=== PATIENT | female | born 1985 | race Caucasian/White ===

== ENCOUNTER 2017-07-15 08:45 | Emergency (ER) | payer SELFPAY ==
[2017-07-15] MEDS ORDERED: D50W 25 GM/50 ML SYRINGE IV ONE (08:55)
[2017-07-15] MEDS ORDERED: NA CHLORIDE 0.9% 1,000 ML ONE ×2 (08:56→10:36)
[2017-07-15 09:12] LABS: Absolute Lymphocytes (CBC) 2.6 K/uL (0.7-4.9); Absolute Neutrophil 8.9 K/uL (1.8-8.0); Basophils % 0.4 % (0-1.3); Eosinophils % 0.5 % (0-4.4); Hematocrit 45.1 % (36.0-45.0); Lymphocytes % 20.2 % (15.3-44.8); MCH 31.6 pg (27.0-35.0); MCV 93.3 fL (80-100); MPV 8.2 fL (7.6-11.3); Monocytes % 8.1 % (3.3-12.3); RBC Red Blood Cell Count 4.83 M/uL (3.86-4.86)
[2017-07-15 09:23] LABS: Protime INR 1.01
[2017-07-15 09:33] LABS: Glucose Level 71 mg/dL (65-120)
[2017-07-15 09:36] LABS: Barbiturates NEGATIVE; Benzodiazepines NEGATIVE; Cocaine POSITIVE; METHAMPHETAM NEGATIVE (NEGATIVE); Opiates NEGATIVE; Phencyclidine NEGATIVE; THC Cannibis NEGATIVE
[2017-07-15 09:39] LABS: ALT/SGPT 13 IU/L (10-60); AST/SGOT 21 IU/L (10-42); Albumin 4.5 g/dL (3.2-5.5); Alkaline Phosphatase 54 IU/L (42-121); BUN Blood Urea Nitrogen 6 mg/dL (6-20); Bilirubin Direct 0.1 mg/dL (0-0.2); Bilirubin Total 0.5 mg/dL (0.3-1.2); Protein, Total 7.7 g/dL (6.0-8.3)
[2017-07-15 09:41] LABS: Bicarbonate 22 mEq/L (21-31); Sodium Level 135 mEq/L (135-145)
[2017-07-15 09:41] LABS: Urine Blood TRACE (NEG); Urine Glucose NEGATIVE (NEG); Urine Protein NEGATIVE (NEG); Urine pH 5.5 (5.0-7.0)
[2017-07-15 09:42] LABS: Alcohol Serum/Plasma 82 mg/dl
[2017-07-15] MEDS ORDERED: Levofloxacin500mg IV 500 MG/100 ML BAG IV ONE (09:57)
[2017-07-15] MEDS ORDERED: D5.45NS W/KCL 20MEQ 1,000 ML IV ONE (09:58)
--- NOTE | 2017-07-15 10:47 | EKG ---
Test Date: 2017-07-15 Test Time: 08:59:56 Bottling Supervisor: TIGRE MEASUREMENT RESULTS: Intervals: Rate: 111 AR: 138 QRSD: 106 QT: 366 QTc: 497 Casey: P: 68 AR: 138 QRS: 105 T: 75 INTERPRETIVE STATEMENTS: Sinus tachycardia Rightward axis Borderline ECG No previous ECG available for comparison Electronically Signed On 07-15-17 10:46:09 CDT by Caleb Russell
--- NOTE | 2017-07-15 15:29 | ER ---
Nurse's Notes [facility] Name: Dawn aDs Age: 31 yrs Sex: Female : 1985 Arrival Date: 07/15/2017 Time: 08:47 Bed 7 Private MD: Diagnosis: Urinary tract infection, site not specified;Drug and alcohol abuse;Altered mental status, unspecified Presentation: 07/15 09:00 Presenting complaint: pt escorted into the ER lobby by possible friend, pt responsive sg to tactile/noxious stimuli, pt mumbles when asked name//year, pt friend reports they are drinking buddies, she called him for help this morning, pt was found with empty bottles of klonopin, zofran, and diclofenac, unsure if pt took any of the medication but all the bottles were found to be empty. Transition of care: patient was not received from another setting of care. Onset of symptoms was July 15, 2017. Risk Assessment: Do you want to hurt yourself or someone else? Other: unable to assess at this time, please note multiple empty prescription bottles found near patient, linear scars noted to inside of right wrist, scars appear old no s/s of bleeding, drainage, infection noted at this time. Initial Sepsis Screen: Does the patient meet any 2 criteria? HR > 90 bpm. Does the patient have a suspected source of infection? No. Patient's initial sepsis screen is negative. Care prior to arrival: None. 09:00 Acuity: KALIE 2 sg 09:00 Method Of Arrival: Wheelchair sg Historical: - Allergies: 08:59 Keflex; sg 08:59 PENICILLINS; sg 08:59 Sulfa (Sulfonamide Antibiotics); sg - PMHx: 09:22 None; sv - PSHx: 08:59 ; hip - left; Appendectomy; sg - Immunization history:: Adult Immunizations unknown, Last tetanus immunization: unknown. - Social history:: Smoking status: unknown. - Ebola Screening: : Patient negative for fever greater than or equal to 101.5 degrees Fahrenheit, and additional compatible Ebola Virus Disease symptoms Patient denies exposure to infectious person Patient denies travel to an Ebola-affected area in the 21 days before illness onset No symptoms or risks identified at this time. Screenin:40 Fall Risk Mental Status- Overestimates/Forgets Limitations (15 pts.). Total Quarles Fall sg Scale indicates Low Risk Score (25-44 pts). Fall prevention measures have been instituted. Side Rails Up X 2 Placed close to Nursing Station Frequent Obs/Assesments occuring. 15:30 Abuse screen: Denies threats or abuse. Denies injuries from another. Nutritional sg screening: No deficits noted. Tuberculosis screening: Never had TB. Assessment: 09:00 General: Appears slender, unkempt, well developed, well nourished, Behavior is drowsy, sg uncooperative, Smells of alcohol. Pain: Unable to use pain scale. Neuro: Level of Consciousness is lethargic, Oriented to none Speech is slurred. Cardiovascular: Heart tones S1 S2 present Capillary refill is brisk in bilateral fingers Patient's skin is warm and dry. Chest pain is denied. Respiratory: Airway is patent Respiratory effort is even, unlabored, Respiratory pattern is regular. GI: No signs and/or symptoms were reported involving the gastrointestinal system. : No deficits noted. EENT: No deficits noted. Derm: Skin is pink, warm \\T\\ dry. Musculoskeletal: No deficits noted. 09:38 Reassessment: family/friends at bedside with pt at this time. sg 09:55 Reassessment: pt family/friends no longer at bedside at this time, pt exam room curtain sg and door remain opened for visualization, bed in low and locked position, srx2, call light within reach, pt remains on monitors, Sukhjinder HARRINGTON notified of pt FSBG of 66, orders received, pt medicated see EMAR. 10:28 Reassessment: Patient appears in no apparent distress at this time. No changes from sg previously documented assessment. 10:37 Reassessment: Patient appears in no apparent distress at this time. , Sukhjinder HARRINGTON sg at bedside evaluating pt speaking with friend about situation PRINCIPAL STATISTICAL PROGRAMMER, PT VS showing hypotension with BP of 70/40's, orders received for NS 1000 mL bolus, pt medicated as ordered see EMAR. 11:38 Reassessment: Patient appears in no apparent distress at this time. Patient and/or sg family updated on plan of care and expected duration. Pain level reassessed. pt aa\\T\\ox2, self and date, pt not able to identify where she is, pt oriented to being in hospital, pt speaking with Sukhjinder HARRINGTON, requesting to go home, pt requesting food, orders received for Reg Diet, tray has been ordered, pt stated understanding, will continue to monitor. 14:07 Reassessment: Patient appears in no apparent distress at this time. Patient and/or sg family updated on plan of care and expected duration. Pain level reassessed. Patient is alert, oriented x 3, equal unlabored respirations, skin warm/dry/pink. pt ambulatory with steady gait to ER POD 1 restrooms, pt assisted back into bed, pt tolerated well. 15:21 Reassessment: pt sitting upright in bed, eating and drinking orange juice at this time, sg pt friend at bedside, pt aa\\T\\ox3 at this time, awaiting new orders, will continue to monitor. 15:29 Reassessment: pt reports feeling " a little better". Sukhjinder HARRINGTON notified pt FSBG is 74, sg orders to continue with PO food and juice, DC to home with family/friend. pt stated understanding. Vital Signs: 08:57 BP 110 / 82; Pulse 118 MON; Resp 17; Temp 98.2; Pulse Ox 95% ; Weight 68.04 kg; Pain sg 0/10; 09:38 BP 107 / 70; Pulse 82; Resp 18 S; Pulse Ox 99% on R/A; sg 10:41 BP 76 / 46; Pulse 79 MON; Resp 14; Pulse Ox 97% on R/A; sg 10:54 BP 99 / 73; Pulse 90 MON; Pulse Ox 97% on R/A; sg 11:37 BP 100 / 65; Pulse 93; Resp 16 S; Pulse Ox 100% on R/A; sg 13:38 BP 109 / 78; Pulse 86; Resp 16; Pulse Ox 98% on R/A; jb1 08:57 Sinus tachycardia sg 10:41 provider aware of VS, ordered to closely monitor, report changes sg Sofiya Coma Score: 12:21 Eye Response: to pain(2). Verbal Response: incomprehensible(2). Motor Response: jr8 localizes pain(5). Total: 9. ED Course: 08:47 Patient arrived in ED. em1 08:48 Sukhjinder Carolina PA is PHCP. jr8 08:48 Berhane Tompkins MD is Attending Physician. jr8 08:50 Patient has correct armband on for positive identification. Placed in gown. Bed in low sv position. Side rails up X2. secured entrance monitor on. Pulse ox on. NIBP on. 08:55 Straight cath inserted, using sterile technique, 16 Fr. Specimen obtained. Returned sv clear yellow urine. Patient tolerated well. 08:56 Quang Galloway, RN is Primary Nurse. sg 08:58 Arm band placed on. sg 08:58 Initial lab(s) drawn, by de, sent to lab. Inserted saline lock: 18 gauge in left sg antecubital area, using aseptic technique. Blood collected. Inserted saline lock: 20 gauge in right forearm, using aseptic technique. RFA IV established by Dana BERRY. 09:03 Triage completed. sg 09:10 EKG done, by hybrid technologist. reviewed by Sukhjinder HARRINGTON. vh 15:30 No provider procedures requiring assistance completed. IV discontinued, intact, sg bleeding controlled, No redness/swelling at site. Pressure dressing applied. Administered Medications: 08:59 Drug: NS 0.9% 1000 ml Route: IV; Rate: 1000 ml; Site: right forearm; sv 10:00 Follow up: Response: No adverse reaction; IV Status: Completed infusion; IV Intake: sg 990ml 08:59 Drug: D50W 25 ml Route: IVP; Site: right forearm; sv 09:40 Follow up: Response: No adverse reaction; Blood sugar is elevated; 71 per serum glucose sg results 10:05 Drug: D5-1/2 NS with KCl 20 mEq/L 1000 ml Route: IV; Rate: 100 ml/hr; Site: left sg antecubital; 10:06 Drug: LevaQUIN 500 mg Volume: 100 ml; Route: IVPB; Infused Over: 60 mins; Site: right sg forearm; 10:38 Drug: NS 0.9% 1000 ml Route: IV; Rate: 1 bolus; Site: right antecubital; sg Point of Care Testing: Blood Glucose: 08:57 Blood Glucose: 54 mg/dL; sg 09:55 Blood Glucose: 66 mg/dL; jb1 Ranges: Intake: 10:00 IV: 990ml; Total: 990ml. sg Outcome: 15:29 Discharge ordered by jrAlyssa 15:30 Discharged to home ambulatory, with family. sg 15:30 Condition: good 15:30 Discharge instructions given to patient, Instructed on discharge instructions, follow up and referral plans. safety practices, Drug and Alcohol abuse Demonstrated understanding of instructions, follow-up care. 15:39 Patient left the ED. sg Signatures: Jaziel Santiago jb1 Dana Ott RN RN sv Gay, Steven, RN RN sg Martinez, Eric em1 Sukhjinder Carolina PA PA jr8 Laurie Estes
--- NOTE | 2017-07-15 15:30 | EDPHYS ---
Physician Documentation [facility] Name: Dawn Das Age: 31 yrs Sex: Female : 1985 Arrival Date: 07/15/2017 Time: 08:47 Bed 7 Private MD: ED Physician Berhane Tompkins HPI: 07/15 12:21 This 31 yrs old Female presents to ER via Wheelchair with complaints of jr8 Possible Overdose. 12:21 Associated signs and symptoms: Pertinent positives: decreased level of consciousness. jr8 Severity of symptoms: At their worst the symptoms were moderate in the emergency department the symptoms are unchanged. The patient has not experienced similar symptoms in the past. The patient has not recently seen a physician. Friend of patient brought her in after patient arrived to his house around 8 am this morning. Stated that she was in and out of consciousness and had incoherent speech . Historical: - Allergies: 08:59 Keflex; sg 08:59 PENICILLINS; sg 08:59 Sulfa (Sulfonamide Antibiotics); sg - PMHx: 09:22 None; sv - PSHx: 08:59 ; hip - left; Appendectomy; sg - Immunization history:: Adult Immunizations unknown, Last tetanus immunization: unknown. - Social history:: Smoking status: unknown. - Ebola Screening: : Patient negative for fever greater than or equal to 101.5 degrees Fahrenheit, and additional compatible Ebola Virus Disease symptoms Patient denies exposure to infectious person Patient denies travel to an Ebola-affected area in the 21 days before illness onset No symptoms or risks identified at this time. ROS: 12:21 Unable to obtain ROS due to altered mental status. jr8 15:29 Eyes: Negative for injury, pain, redness, and discharge, ENT: Negative for injury, jr8 pain, and discharge, Neck: Negative for injury, pain, and swelling, Cardiovascular: Negative for chest pain, palpitations, and edema, Respiratory: Negative for shortness of breath, cough, wheezing, and pleuritic chest pain, Abdomen/GI: Negative for abdominal pain, nausea, vomiting, diarrhea, and constipation, Back: Negative for injury and pain, MS/Extremity: Negative for injury and deformity, Skin: Negative for injury, rash, and discoloration, Neuro: Negative for headache, weakness, numbness, tingling, and seizure. Exam: 12:21 Head/Face: Normocephalic, atraumatic. Eyes: Pupils equal round and reactive to light, jr8 extra-ocular motions intact. Lids and lashes normal. Conjunctiva and sclera are non-icteric and not injected. Cornea within normal limits. Periorbital areas with no swelling, redness, or edema. ENT: Nares patent. No nasal discharge, no septal abnormalities noted. Tympanic membranes are normal and external auditory canals are clear. Oropharynx with no redness, swelling, or masses, exudates, or evidence of obstruction, uvula midline. Mucous membranes moist. Neck: Trachea midline, no thyromegaly or masses palpated, and no cervical lymphadenopathy. Supple, full range of motion without nuchal rigidity Cardiovascular: Sinus tachycardia with a normal S1 and S2. No gallops, murmurs, or rubs. Normal PMI, no JVD. No pulse deficits. Respiratory: Lungs have equal breath sounds bilaterally, clear to auscultation and percussion. No rales, rhonchi or wheezes noted. No increased work of breathing, no retractions or nasal flaring. Abdomen/GI: Soft with normal bowel sounds. No distension or tympany. No guarding Back: No spinal tenderness. No costovertebral tenderness. Full range of motion. Skin: Warm, dry with normal turgor. Normal color with no rashes, no lesions, and no evidence of cellulitis. MS/ Extremity: Pulses equal, no cyanosis. Neurovascular intact. Full, normal range of motion. 12:21 Neuro: Orientation: Not oriented to person, place, time, situation, Mentation: inappropriate for stated age, slow to respond, confused, unable to follow commands, Memory: unable to test, Cerebellar function: unable to test, Motor: moves all fours, Sensation: no obvious gross deficits, Gait: not tested. seizure activity, is not displayed by the patient, Abnormal movements: there are no abnormal movements. Vital Signs: 08:57 BP 110 / 82; Pulse 118 MON; Resp 17; Temp 98.2; Pulse Ox 95% ; Weight 68.04 kg; Pain sg 0/10; 09:38 BP 107 / 70; Pulse 82; Resp 18 S; Pulse Ox 99% on R/A; sg 10:41 BP 76 / 46; Pulse 79 MON; Resp 14; Pulse Ox 97% on R/A; sg 10:54 BP 99 / 73; Pulse 90 MON; Pulse Ox 97% on R/A; sg 11:37 BP 100 / 65; Pulse 93; Resp 16 S; Pulse Ox 100% on R/A; sg 13:38 BP 109 / 78; Pulse 86; Resp 16; Pulse Ox 98% on R/A; jb1 08:57 Sinus tachycardia sg 10:41 provider aware of VS, ordered to closely monitor, report changes sg Bethel Coma Score: 12:21 Eye Response: to pain(2). Verbal Response: incomprehensible(2). Motor Response: jr8 localizes pain(5). Total: 9. MDM: 08:48 Patient medically screened. jr8 11:37 ED course: Patient alert to verbal stimulus now and making sense. Stated that she had a jr8 lot of alcohol and cocaine last night. Denies trying to hurt herself. Denies taking any other prescribed or non prescribed drugs . 12:25 ED course: Patient remains stable in ED. GCS 14 now . jr8 13:34 Data reviewed: vital signs, nurses notes, lab test result(s), EKG. Data interpreted: jr8 Pulse oximetry: on room air is 100 %. Interpretation: normal. Counseling: I had a detailed discussion with the patient and/or guardian regarding: the historical points, exam findings, and any diagnostic results supporting the discharge/admit diagnosis, lab results, the need for outpatient follow up, a family practitioner, to return to the emergency department if symptoms worsen or persist or if there are any questions or concerns that arise at home. ED course: Patient is up and eating. GCS 15. Normal mentation . 07/15 08:49 Order name: Acetaminophen; Complete Time: :07/15 08:49 Order name: Basic Metabolic Panel; Complete Time: :44 07/15 08:49 Order name: CBC with Diff; Complete Time: 09:18 07/15 08:49 Order name: ETOH Level; Complete Time: :07/15 08:49 Order name: Hepatic Function; Complete Time: :44 07/15 08:49 Order name: PT-INR; Complete Time: 07/15 08:49 Order name: Ptt, Activated; Complete Time: 07/15 08:49 Order name: Salicylate; Complete Time: 10:02 07/15 08:49 Order name: Urine Drug Screen; Complete Time: 09:44 07/15 09:11 Order name: Urine Dipstick--Ancillary (enter results); Complete Time: 09:44 07/15 09:11 Order name: Urine --Ancillary (enter results); Complete Time: 09:44 07/15 08:49 Order name: Urine Test (obtain specimen); Complete Time: 09:06 07/15 08:49 Order name: EKG; Complete Time: 08:49 07/15 08:49 Order name: EKG - Nurse/Tech; Complete Time: 09:06 07/15 08:49 Order name: IV Saline Lock; Complete Time: 09:06 07/15 08:49 Order name: Labs collected and sent; Complete Time: 09:06 07/15 08:49 Order name: Urine Dipstick-Ancillary (obtain specimen); Complete Time: 09:06 07/15 09:08 Order name: Straight Cath; Complete Time: 09:14 sv 07/15 11:37 Order name: Diet Regular; Complete Time: 11:37 sg Administered Medications: 08:59 Drug: NS 0.9% 1000 ml Route: IV; Rate: 1000 ml; Site: right forearm; sv 10:00 Follow up: Response: No adverse reaction; IV Status: Completed infusion; IV Intake: sg 990ml 08:59 Drug: D50W 25 ml Route: IVP; Site: right forearm; sv 09:40 Follow up: Response: No adverse reaction; Blood sugar is elevated; 71 per serum glucose sg results 10:05 Drug: D5-1/2 NS with KCl 20 mEq/L 1000 ml Route: IV; Rate: 100 ml/hr; Site: left sg antecubital; 10:06 Drug: LevaQUIN 500 mg Volume: 100 ml; Route: IVPB; Infused Over: 60 mins; Site: right sg forearm; 10:38 Drug: NS 0.9% 1000 ml Route: IV; Rate: 1 bolus; Site: right antecubital; sg Point of Care Testing: Blood Glucose: 08:57 Blood Glucose: 54 mg/dL; sg 09:55 Blood Glucose: 66 mg/dL; jb1 Ranges: Critical Glucose Levels:Adult <50 mg/dl or >400 mg/dl <40 mg/dl or >180 mg/dl Disposition: 17:29 Co-signature as Attending Physician, Berhane Tompkins MD. rn Disposition: 07/15/17 15:29 Discharged to Home. Impression: Urinary tract infection, site not specified, Drug and alcohol abuse, Altered mental status, unspecified. - Condition is Stable. - Discharge Instructions: Alcohol and Drug Addiction, Finding Treatment, Urinary Tract Infection, Altered Mental Status. - Prescriptions for Macrobid 100 mg Oral Capsule - take 1 capsule by ORAL route every 12 hours for 7 days; 14 capsule. - Medication Reconciliation Form, Thank You Letter, Antibiotic Education, Prescription Opioid Use form. - Follow up: Private Physician; When: 1 - 2 days; Reason: Recheck today's complaints, Continuance of care, Re-evaluation by your physician. - Problem is new. - Symptoms have improved. Signatures: Dispatcher [employer] Dana Grey RN RN sv Gay, Steven, RN RN sg Nieto, Roman, MD MD rn Roszak, Josh, PA PA jr8 Corrections: (The following items were deleted from the chart) 09:08 08:49 Tello ordered. jr8 15:39 15:29 07/15/2017 15:29 Discharged to Home. Impression: Urinary tract infection, site sg not specified; Drug and alcohol abuse; Altered mental status, unspecified. Condition is Stable. Discharge Instructions: Alcohol and Drug Addiction, Finding Treatment, Urinary Tract Infection, Altered Mental Status. Prescriptions for Macrobid 100 mg Oral Capsule - take 1 capsule by ORAL route every 12 hours for 7 days; 14 capsule. and Forms are Medication Reconciliation Form, Thank You Letter, Antibiotic Education, Prescription Opioid Use. Follow up: Private Physician; When: 1 - 2 days; Reason: Recheck today's complaints, Continuance of care, Re-evaluation by your physician. Problem is new. Symptoms have improved. jr8
== END 2017-07-15 15:39 | disposition home or self-care (01) ==
LOC: ER 08:45
DX: F10.10 Alcohol abuse, uncomplicated (principal); F14.10 Cocaine abuse, uncomplicated; N39.0 Urinary tract infection, site not specified; Z88.0 Allergy status to penicillin; Z88.1 Allergy status to other antibiotic agents; Z88.2 Allergy status to sulfonamides
CPT/HCPCS: 36415; 51702; 80048; 80076; 80307; 80320; 80329; 81003; 81025; 82962; 85025; 85610; 85730; 93005; 96361; 96374; 96375; 99285; J7030

== ENCOUNTER 2018-05-04 13:50 | Emergency (ER) | payer SELFPAY ==
[2018-05-04 16:17] LABS: Urine Bacteria 20-50 /HPF (<20); Urine Culture Reflex Order NOT NEEDED; Urine Mucus 2+ /HPF (NONE SEEN)
[2018-05-04 16:18] LABS: Urine Blood 2+ (NEG); Urine Glucose TRACE (NEG); Urine Protein 2+ (NEG); Urine Specific Gravity 1.025 (1.005-1.030); Urine pH 5.5 (5.0-7.0)
[2018-05-04] MEDS ORDERED: CIPROFLOXACIN HCL 500 MG TAB ONE (16:48)
--- NOTE | 2018-05-04 17:13 | ER ---
Nurse's Notes [facility] Name: Dawn Das Age: 32 yrs Sex: Female : 1985 Arrival Date: 05/04/2018 Time: 13:53 Bed 25 Private MD: Diagnosis: Urinary tract infection, site not specified Presentation: 05/04 14:02 Presenting complaint: left flank pain that radiates to left abdomen, nausea, blood in hb urine, and fever x 3 days. Transition of care: patient was not received from another setting of care. Onset of symptoms was May 01, 2018. Risk Assessment: Do you want to hurt yourself or someone else? Patient reports no desire to harm self or others. Care prior to arrival: None. 14:02 Method Of Arrival: Ambulatory hb 14:02 Acuity: KALIE 3 hb 15:43 Initial Sepsis Screen: Does the patient meet any 2 criteria? No. Patient's initial ls4 sepsis screen is negative. Does the patient have a suspected source of infection? No. Patient's initial sepsis screen is negative. Triage Assessment: 15:43 General: Appears in no apparent distress. Behavior is calm, cooperative. GI: No ls4 deficits noted. Reports FLANK PAIN. SUPERVISOR GROWER: 15:44 LMP N/A - control method ls4 Historical: - Allergies: 14:03 Keflex; hb 14:03 PENICILLINS; hb 14:03 Sulfa (Sulfonamide Antibiotics); hb - PSHx: 14:03 ; hip - left; Appendectomy; hb - Immunization history:: Adult Immunizations unknown. - Family history:: not pertinent. - Social history:: Smoking status: Patient/guardian denies using tobacco. - Ebola Screening: : Patient negative for fever greater than or equal to 101.5 degrees Fahrenheit, and additional compatible Ebola Virus Disease symptoms Patient denies exposure to infectious person Patient denies travel to an Ebola-affected area in the 21 days before illness onset No symptoms or risks identified at this time. - Hospitalizations: : No recent hospitalization is reported. Screenin:41 Abuse screen: Denies threats or abuse. Denies injuries from another. Nutritional ls4 screening: No deficits noted. Tuberculosis screening: No symptoms or risk factors identified. Fall Risk None identified. Assessment: 15:41 Pain: Complains of pain in left mid back Pain currently is 8 out of 10 on a pain scale. ls4 GI: Abdomen is flat, non-distended, Bowel sounds present X 4 quads. Abd is soft and non tender. 16:32 Reassessment: Patient appears in no apparent distress at this time. Patient and/or ls4 family updated on plan of care and expected duration. Pain level reassessed. Patient is alert, oriented x 3, equal unlabored respirations, skin warm/dry/pink. Vital Signs: 14:02 BP 104 / 67; Pulse 107; Resp 16; Temp 99; Pulse Ox 100% ; Pain 8/10; hb 17:26 BP 112 / 64; Pulse 98; Resp 16; Temp 98.9; Pulse Ox 99% on R/A; Pain 5/10; ls4 ED Course: 13:53 Patient arrived in ED. as 14:02 Triage completed. hb 14:03 Arm band placed on. hb 15:06 Berhane Tompkins MD is Attending Physician. rn 15:11 Melissa Simons, JAMAL is Primary Nurse. ls4 15:35 Bed in low position. Call light in reach. Side rails up X 1. Pillow given. Pulse ox on. jp3 NIBP on. 15:35 Urine collected: clean catch specimen, cloudy, beti colored, Amount Voided: 100mL. jp3 15:35 Urine Culture Sent. jp3 15:35 Urine Microscopic Only Sent. jp3 15:41 No provider procedures requiring assistance completed. Patient did not have IV access ls4 during this emergency room visit. Administered Medications: 16:20 Drug: Cipro 500 mg Route: PO; ls4 16:50 Follow up: Response: No adverse reaction ls4 17:24 Drug: Zofran 4 mg Route: PO; ls4 17:27 Follow up: Response: No adverse reaction ls4 Outcome: 17:13 Discharge ordered by . rn 17:28 Patient left the ED. ls4 Signatures: Rosalinda Barrera Roman, MD MD rn Baxter, Heather, RN RN Sebas Campos 3 Melissa Simons RN RN ls4
--- NOTE | 2018-05-04 17:13 | EDPHYS ---
Physician Documentation [facility] Name: Dawn Das Age: 32 yrs Sex: Female : 1985 Arrival Date: 05/04/2018 Time: 13:53 Bed 25 Private MD: ED Physician Berhane Tompkins HPI: 05/04 15:15 This 32 yrs old Female presents to ER via Ambulatory with complaints of Flank rn Pain, Fever, Nausea. 15:15 The patient complains of pain in the left mid back. rn 15:17 Onset: The symptoms/episode began/occurred 3 day(s) ago. Modifying factors: The rn symptoms are alleviated by nothing. the symptoms are aggravated by nothing. Associated signs and symptoms: Pertinent positives: fever, urinary frequency, hematuria, nausea, Pertinent negatives: diarrhea. Severity of pain: At its worst the pain was mild in the emergency department the pain is unchanged. The patient has not experienced similar symptoms in the past. The patient has not recently seen a physician. Reports left back/flank pain, increased urination, fever, nausea, identical to previous UTI last year. . 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 - Family history:: not pertinent. - Social history:: Smoking status: Patient/guardian denies using tobacco. - Ebola Screening: : Patient negative for fever greater than or equal to 101.5 degrees Fahrenheit, and additional compatible Ebola Virus Disease symptoms Patient denies exposure to infectious person Patient denies travel to an Ebola-affected area in the 21 days before illness onset No symptoms or risks identified at this time. - Hospitalizations: : No recent hospitalization is reported. 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 Exam: 15:17 Constitutional: This is a well developed, well nourished patient who is awake, alert, rn and in no acute distress. Head/Face: Normocephalic, atraumatic. Eyes: Pupils equal round and reactive to light, extra-ocular motions intact. Lids and lashes normal. Conjunctiva and sclera are non-icteric and not injected. Cornea within normal limits. Periorbital areas with no swelling, redness, or edema. Abdomen/GI: soft, non-tender Back: No spinal tenderness. + left CVAT Skin: Warm, dry MS/ Extremity: Pulses equal, no cyanosis. Neurovascular intact. Full, normal range of motion. Equal circumference. Neuro: Awake and alert, GCS 15, oriented to person, place, time, and situation. Cranial nerves II-XII grossly intact. Motor strength 5/5 in all extremities. Sensory grossly intact Vital Signs: 14:02 BP 104 / 67; Pulse 107; Resp 16; Temp 99; Pulse Ox 100% ; Pain 8/10; hb 17:26 BP 112 / 64; Pulse 98; Resp 16; Temp 98.9; Pulse Ox 99% on R/A; Pain 5/10; ls4 MDM: 15:06 Patient medically screened. rn 15:41 Differential diagnosis: pyelonephritis, UTI. 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 Counseling: I had a detailed discussion with the patient and/or guardian regarding: the historical points, exam findings, and any diagnostic results supporting the discharge/admit diagnosis, lab results, the need for outpatient follow up, to return to the emergency department if symptoms worsen or persist or if there are any questions or concerns that arise at home. 05/04 15:12 Order name: Urine Microscopic Only; Complete Time: 16:18 rn 05/04 15:12 Order name: Urine Culture rn 05/04 15:48 Order name: Urine Dipstick--Ancillary (enter results) bd 05/04 16:30 Order name: Urine --Ancillary (enter results) bd 05/04 15:12 Order name: Urine Dipstick-Ancillary (obtain specimen); Complete Time: 15:35 rn 05/04 15:12 Order name: Urine Test (obtain specimen); Complete Time: 15:35 rn Administered Medications: 16:20 Drug: Cipro 500 mg Route: PO; ls4 16:50 Follow up: Response: No adverse reaction ls4 17:24 Drug: Zofran 4 mg Route: PO; ls4 17:27 Follow up: Response: No adverse reaction ls4 Disposition: 05/04/18 17:13 Discharged to Home. Impression: Urinary tract infection, site not specified. - Condition is Stable. - Discharge Instructions: Urinary Tract Infection, Adult. - Prescriptions for Cipro 500 mg Oral Tablet - take 1 tablet by ORAL route every 12 hours for 10 days; 20 tablet. - Medication Reconciliation Form, Thank You Letter, Antibiotic Education, Prescription Opioid Use, Work release form form. - Follow up: Private Physician; When: As needed; Reason: Recheck today's complaints, Re-evaluation by your physician. - Problem is new. - Symptoms have improved. Signatures: Dispatcher [employer] EDBerhane Hernandez MD MD rn Baxter, Heather, RN RN hb Stewart, Lisa, RN RN ls4 Corrections: (The following items were deleted from the chart) 17:28 17:13 05/04/2018 17:13 Discharged to Home. Impression: Urinary tract infection, site ls4 not specified. Condition is Stable. Forms are Medication Reconciliation Form, Thank You Letter, Antibiotic Education, Prescription Opioid Use. Follow up: Private Physician; When: As needed; Reason: Recheck today's complaints, Re-evaluation by your physician. Problem is new. Symptoms have improved. rn
[2018-05-04] MEDS ORDERED: ONDANSETRON 4 MG (ODT) TAB ONE (17:36)
[2018-05-04 19:41] LABS: Urine Specific Gravity 1.025 (1.005-1.030)
== END 2018-05-04 17:28 | disposition home or self-care (01) ==
LOC: ER 13:50
DX: N39.0 Urinary tract infection, site not specified (principal); Z88.1 Allergy status to other antibiotic agents; Z88.0 Allergy status to penicillin; Z88.2 Allergy status to sulfonamides
CPT/HCPCS: 81003; 81015; 81025; 87077; 87086; 87088; 87186; 99283